=== PATIENT | female | born 1950 | race Caucasian/White ===

== ENCOUNTER → 2016-11-15 | Outpatient (CLI) | payer OTHER, MEDICARE ==
[~2016-11-15] MED LIST: ACIDOPHILUS1 CA2 PO; BUPROPION XL150 MG PO; CRANBERRY450 M1 PO; FERRO-TIME325 MG PO; FISH OIL 1,2001 CAP PO; FLAX SEED OIL1 EACH PO; FOLIC ACID PO; GIN-ZING100 MG PO; LEVOTHYROXINE75 MC1 PO; PREMARIN VAG CR45 GM MC; PROTONIX20 MG PO; STOOL SOFTENER50 MG PO; VITAMIN B122500 MCG PO; XARELTO15 MG PO
--- NOTE | ~2016-11-15 | US85 ---
[facility] A Service of [facility] & [facility] RADIOLOGY TEXT RESULTS PATIENT: HARSH BENZ LOCATION: CNIV : 50 UNIT #: [id number] AGE: [address]: Uzair Palomo MD SEX: F ORDER DR: [id number] [facility] [address] [place], [place] [address] [id number] O MR#: [id number] Acc #: [id number] NAME: HARSH BENZ : 1950 SEX: F STUDY DATE/TIME: 11/15/2016 11:27 UNIT: CNIV ROOM: STUDY DESCRIPTION: LE Veins Unilat or Ltd Stdy Attending Physician: Uzair Palomo M.D. Referring Physician: Uzair Palomo M.D. Ordering Physician: Uzair Palomo M.D. Primary Care Physician: Chayo Kumari M.D. MEDICAL IMAGING REPORT This report is preliminary unless electronic signature is present EXAM Right lower extremity venous Doppler HISTORY DVT. Patient was diagnosed with right lower extremity DVT May 2016. Still on blood thinners. TECHNIQUE Blanc-scale, color Doppler and spectral Doppler waveform analysis was performed through the right lower extremity. FINDINGS This patient has persistent DVT involving the common femoral, superficial femoral and popliteal veins, although this is now chronic in appearance, as it has a linear distribution peripherally within the vessel. Patient now does have flow identified throughout these vessels. No thrombus is identified within the patient's profunda femoris vein. The right anterior tibial, posterior tibial peroneal saphenous veins are all patent and compressible. IMPRESSION The patient has chronic DVT involving the right common femoral, superficial femoral and popliteal veins. No DVT within the calf is identified, and the patient's profunda femoris vein is now patent and compressible. Dictated by... Larisa Mix M.D. THIS IS AN ELECTRONICALLY VERIFIED REPORT Larisa Mix M.D. at 11/16/2016 5:01 PM AFF/pcl ST[facility]. [facility] A Service of [facility] & [facility] RADIOLOGY TEXT RESULTS PATIENT: HARSH BENZ LOCATION: CNIV : 50 UNIT #: [id number] AGE: [address]: Uzair Palomo MD SEX: F ORDER DR: TD: 11/15/2016 22:10 JOB #: [id number] MEDICAL IMAGING REPORT Page 1 of 1 COPY
== END | disposition home or self-care (01) ==
LOC: CNIV 10:28
DX: I82.531 Chronic embolism and thrombosis of right popliteal vein (principal); I82.511 Chronic embolism and thrombosis of right femoral vein; D50.9 Iron deficiency anemia, unspecified; K90.9 Intestinal malabsorption, unspecified
CPT/HCPCS: 93971